=== PATIENT | male | born 1945 | race Caucasian/White ===

== ENCOUNTER 2018-12-31 18:25 | Emergency (ER) | payer BC ==
[2018-12-31 18:43] VITALS: BP 138/98; PULSE 77; TEMP 98.7; BMI 33.3
--- NOTE | 2018-12-31 19:59 | PDOC ---
History of Present Illness - General Chief Complaint: Alcohol intoxication Stated Complaint: INTOX Time Seen by Provider: 12/31/18 19:27 History Source: Patient - History of Present Illness Initial Comments: 12/31/18 19:59 73m complaining of neck pain after fall due to poor vision. Patient is seemingly intoxicated by the way of ethanol. Past History - Past Medical History COPD: No Diabetes: Yes HTN: Yes Other medical history: DEPRESSION - Immunization History Immunization Up to Date: (UNKNOWN) - Suicide/Smoking/Psychosocial Hx Smoking History: Never smoked Hx Alcohol Use: No Drug/Substance Use Hx: No Review of Systems - Review of Systems Able to Perform ROS?: Yes Is the patient limited Algerian proficient: No Constitutional: No: Symptoms Reported HEENTM: Yes: See HPI Respiratory: No: Symptoms reported Cardiac (ROS): No: Symptoms Reported ABD/GI: No: Symptoms Reported : No: Symptoms Reported Musculoskeletal: No: Symptoms Reported Integumentary: No: Symptoms Reported All Other Systems: Reviewed and Negative *Physical Exam - Vital Signs Last Vital Signs Temp Pulse Resp BP Pulse Ox 98.7 F 77 18 138/98 96 12/31/18 18:39 12/31/18 18:39 12/31/18 18:39 12/31/18 18:39 12/31/18 18:39 - Physical Exam General Appearance: Yes: Nourished, Appropriately Dressed HEENT: positive: EOMI, JUDY, Normal ENT Inspection, Other (cranium completely atraumatic. no midline tenderness. tender over trapezii) Respiratory/Chest: positive: Lungs Clear, Normal Breath Sounds. negative: Chest Tender Cardiovascular: positive: Regular Rhythm, Regular Rate, S1, S2 Gastrointestinal/Abdominal: positive: Normal Bowel Sounds, Flat, Soft. negative : Tender Musculoskeletal: positive: Normal Inspection. negative: CVA Tenderness Extremity: positive: Normal Capillary Refill, Normal Inspection, Normal Range of Motion Integumentary: positive: Normal Color, Dry, Warm Neurologic: positive: Alert, Other (pleasantly intoxicated.) Medical Decision Making - Medical Decision Making 12/31/18 21:41 73 intoxicated man presenting with neck pain following ?fall yesterday. Will r/o fracture and bl;eed with ct head and cervical neck. Dispo accordingly. 12/31/18 22:06 NO fracture on c-spine, no intracranial processes. OK to D/C if sober. 12/31/18 22:18 Patient too intoxicated to ambulate. Will observe. Signed out to Dr. Larose. *DC/Admit/Observation/Transfer Diagnosis at time of Disposition: Alcohol intoxication - Referrals Referrals: Dwayne Villela MD [Primary Care Provider] - - Patient Instructions - Post Discharge Activity
--- NOTE | 2019-01-01 00:40 | PDOC ---
*Physical Exam - Vital Signs Last Vital Signs Temp Pulse Resp BP Pulse Ox 98.7 F 77 18 138/98 96 12/31/18 18:39 12/31/18 18:39 12/31/18 18:39 12/31/18 18:39 12/31/18 18:39 *DC/Admit/Observation/Transfer Diagnosis at time of Disposition: Neck pain Alcohol intoxication Qualifiers: Complication of substance-induced condition: uncomplicated Qualified Code(s): F10.920 - Alcohol use, unspecified with intoxication, uncomplicated - Discharge Dispostion Disposition: HOME Condition at time of disposition: Stable - Referrals Referrals: Dwayne Villela MD [Primary Care Provider] - - Patient Instructions Printed Discharge Instructions: DI for Alcohol Abuse, DI for Neck Pain Additional Instructions: please take tylenol for pain if needed and refrain from excessive alcohol intake - Post Discharge Activity
--- NOTE | 2019-01-01 02:06 | PDOC ---
Documentation entered by Wanda Russ SCRIBE, acting as scribe for Iraida Sorensen MD. Iraida Sorensen MD: This documentation has been prepared by the charisseibe, Wanda Russ SCRIBE, under my direction and personally reviewed by me in its entirety. I confirm that the documentation accurately reflects all work, treatment, procedures, and medical decision making performed by me. Attending Attestation - Resident Resident Name: Julio Allan - ED Attending Attestation I have performed the following: I have examined & evaluated the patient, The case was reviewed & discussed with the resident, I agree w/resident's findings & plan, Exceptions are as noted - HPI HPI: 12/31/18 20:20 73 yo male BIBA for complaint of neck pain. He appears to have alcohol on his breath head no scalp hematomas,no scalp lacerations eyes stacey ,eomi neck parapspinal muscle soreness, no midline tenderness lungs no crackles cvs [id number] abd protuberant,nontender ext no deformities skin warm and dry neuro appears etoh intoxicated but answers questions and is conversant - Physicial Exam PE: 01/01/19 02:04 WNWD 73 YO MALE W ETOH ON BREATH HEAD NO SCALP LACERATIONS EYES STACEY EOMI LUNGS CTA B/L CVS [id number] ABDOMEN NO GUARDING PELVIC SCANT VAGINAL BLEED,NO CLOTS EXT NO EDEMA NEURO AXOX3,AMBULATORY - Medical Decision Making 12/31/18 20:23 ct scan head is NEGATIVE for acute infarct,bleed,mass or shift ct scan c spine is NEGATIVE for subluxation ,negative for fracture 12/31/18 22:06 imp etoh intoxication 01/01/19 00:38 pt is able to ambulate to the bathroom ad has been eating diff diag: neck pain/etoh
== END 2019-01-01 01:28 | disposition home or self-care (01) ==
LOC: JER 18:25
DX: F10.120 Alcohol abuse with intoxication, uncomplicated (principal); M54.2 Cervicalgia; W19.XXXA Unspecified fall, initial encounter; Y93.89 Activity, other specified; Y92.89 Other specified places as the place of occurrence of the external cause; Y99.8 Other external cause status
CPT/HCPCS: 70450-TC; 72125-TC; 99281-25